=== PATIENT | male | born 1995 | race Hispanic/Latino ===

== ENCOUNTER 2019-11-12 08:22 | Emergency (ER) | payer SELFPAY ==
[2019-11-12 08:42] VITALS: TEMP 97.9
[2019-11-12] MEDS ORDERED: AMOXICILLIN & POT CLAVULANATE 875 MG TAB PO ONE (08:42)
[2019-11-12] MEDS ORDERED: IBUPROFEN 200 MG TAB PO ONE (08:42)
[2019-11-12] MEDS ORDERED: TETANUS,DIPHTHERIA,PERTUSSIS 1 EA SYG IM ONE (08:42)
--- NOTE | 2019-11-12 08:42 | ED.PDOC ---
History of Present Illness - General Time Seen by Provider: 11/12/19 08:34 Source: patient - History of Present Illness Initial Comments: 24-year-old male who presents with chief complaint of right foot pain following injury yesterday at work. Patient states that he was walking in boots when he stepped on a nail on the ground. Reports that the nail went through the bottom of the boot and into the sole of the midfoot of the right foot. Reports he be lieves it was a shallow puncture wound, maybe 1 to 2 cm deep at most. Does report a small amount of bleeding initially with the injury which is now ceased. Reports minimal pain to the area at rest, but worsens with weightbearing and walking, reports as sharp/throbbing, moderate severity with walking, no radiation, no medication taken for relief. Denies any redness/warmth/swelling/discharge to the area. He is unsure of the date of his last tetanus shot. Denies any fevers, chills, other systemic symptoms. Allergies/Adverse Reactions: Allergies NO KNOWN ALLERGY Allergy (Verified 11/12/19 08:39) Home Medications: Ambulatory Orders Amoxicillin & Pot Clavulanate [Augmentin Tab] 875 mg PO BID 5 Days #10 tab 11/12/19 Review of Systems - Review of Systems Review of Systems: 11/12/19 09:14 as per HPI All other Systems: Reviewed and Negative Family Medical History - Family History Mother Family History: Unknown Physical Exam - Physical Exam General Appearance: Alert, Comfortable, No apparent distress Eye Exam: bilateral normal Ears, Nose, Throat: normal ENT inspection Neck: full range of motion, normal inspection Respiratory: lungs clear, normal breath sounds, no respiratory distress, no accessory muscle use Cardiovascular/Chest: normal peripheral pulses, regular rate, rhythm, no edema, no gallop, no JVD, no murmur Peripheral Pulses: radial,right: 2+, radial,left: 2+, dorsalis pedis,right: 2+, dorsalis pedis,left: 2+, posterior tibialis,right: 2+, posterior tibialis,left: 2+ Gastrointestinal/Abdominal: non tender, soft Back Exam: normal inspection Extremity: normal range of motion, other - Midfoot sole of the right foot with approximately 2 x 2 millimeter puncture wound with minimal surrounding swelling without redness/warmth/discharge. Area is moderately tender to palpation. No induration or fluctuance noted Neurologic: no motor/sensory deficits, alert, normal mood/affect Skin Exam: normal color, warm/dry Progress - Progress Progress: 11/12/19 09:16 Right foot puncture wound -no evidence of infection. Will treat with updating Tetanus shot and will put on prophylactic Abx with Augmentin BID x5 days, first dose here -dc to home in good condition, return warnings discussed Ashvin Rae MD Billing #[id number] Departure - Departure Clinical Impression: Puncture wound of foot excluding toes without complication Qualifiers: Encounter type: initial encounter Laterality: right Qualified Code(s): S91.331A - Puncture wound without foreign body, right foot, initial encounter Time of Disposition: 08:43 Disposition: Discharge to Home or Self Care Condition: Good Instructions: Wound Care (DC) Diet: resume usual diet Activity: increase activity as tolerated Prescriptions: Amoxicillin & Pot Clavulanate [Augmentin Tab] 875 mg PO BID 5 Days #10 tab Home Medications: Ambulatory Orders Amoxicillin & Pot Clavulanate [Augmentin Tab] 875 mg PO BID 5 Days #10 tab 11/12/19 Additional Instructions: Take the antibiotics as directed in order to prevent infection. Return to the ED if the area develops worsening redness, swelling, pain, or puslike discharge. Otherwise continue taking [id number] medication such as Tylenol and ibuprofen for pain control. Follow-up with your primary care physician as scheduled or sooner as needed.
[2019-11-12] MEDS ORDERED: CHLORHEXIDINE GLUCONATE 4 % 15 ML UD TOP ONE (09:00)
[2019-11-12 09:18] VITALS: BP 123/79; O2SAT 99
== END 2019-11-12 09:17 | disposition home or self-care (01) ==
LOC: ER 08:22
DX: S91.331A Puncture wound without foreign body, right foot, initial encounter (principal); W45.0XXA Nail entering through skin, initial encounter; Y99.0 Civilian activity done for income or pay; Y93.01 Activity, walking, marching and hiking; Y92.9 Unspecified place or not applicable